=== PATIENT | female | born 1980 | race Two or more races ===

== ENCOUNTER 2025-02-03 17:20 | Emergency (ER) | payer MEDICAID, OTHER ==
[~2025-02-03] VITALS: Ht 154.9 cm; Wt 54.4 kg
[2025-02-03 18:32] LABS: PLATELET COUNT (AUTO) 514 K/uL (150-450); RED BLOOD CELL COUNT(AUTO) 4.51 MIL/uL (4.0-5.2); RED CELL DISTRIBUTION WIDTH 19.4 % (11.5-15.0); WHITE BLOOD COUNT (AUTO) 14.2 K/uL (4.3-11.0)
[2025-02-03] MEDS ORDERED: ACETAMINOPHEN 325 MG TABLET ONE (18:39)
[2025-02-03 18:44] LABS: CALCIUM, SERUM 8.9 mg/dL (8.5-10.1); CREATININE 0.6 mg/dL (0.6-1.3); SODIUM SERUM 140.0 mmol/L (136-145); UREA NITROGEN, BLOOD 12.0 mg/dL (7-18)
[2025-02-03] MEDS: ACETAMINOPHEN 325 MG TABLET PO ONE (18:55)
[2025-02-03 19:12] LABS: NT-PRO BNP 41 pg/mL (0-125)
[2025-02-03] MEDS ORDERED: KETOROLAC TROMETHAMINE 15 MG/ML VIAL ONE (20:32)
[2025-02-03] MEDS: KETOROLAC TROMETHAMINE 15 MG/ML VIAL IM ONE (20:33)
[2025-02-03] MEDS ORDERED: LIDO30AD10 TP (20:52)
[2025-02-03] MEDS ORDERED: IBUP-1955 PO (20:52)
[2025-02-03] MEDS ORDERED: METH-649 PO (20:52)
[2025-02-03] MEDS ORDERED: ACET325C7 PO (20:52)
[2025-02-03] MEDS ORDERED: FERR-68 PO (21:01)
[2025-02-03] MEDS ORDERED: DOCU-141 PO (21:01)
[2025-02-03] MEDS ORDERED: ASCO500C18 PO (21:01)
[2025-02-03 21:28] VITALS: BP 122/78; TEMP 98.3; O2SAT 99
== END 2025-02-03 21:29 | disposition home or self-care (01) ==
LOC: ER 17:22
DX: D50.9 Iron deficiency anemia, unspecified (principal); R07.89 Other chest pain; R51.9 Headache, unspecified; M25.532 Pain in left wrist; D53.9 Nutritional anemia, unspecified; R06.02 Shortness of breath
CPT/HCPCS: 99285; 71045; 96372; 93005; 72040; 73080; 73110; 85025; 80048; 36415; 84484 ×2; 83880; J1885